=== PATIENT | female | born 1990 | race Caucasian/White ===

== ENCOUNTER 2017-06-13 10:53 | Emergency (ER) | payer MEDICAID ==
[2017-06-13 11:10] VITALS: RESP 16; TEMP 97.9
--- NOTE | 2017-06-13 11:47 | EDPHY ---
H & P Time Seen by Provider: 06/13/17 11:22 HPI/ROS: CHIEF COMPLAINT: left hand pain HISTORY OF PRESENT ILLNESS: 26-year-old female presents emergency department for a recheck of her left 5th phalanx fracture. Patient broke her proximal phalanx playing football 10 days ago, she was seen at urgent care and told she has a spiral fracture of her proximal phalanx. She was placed in a splint and told to follow up with Orthopedics. Patient has Medicaid, she reports she was told she needed to come to the emergency department to get a referral to see Ortho and to get a repeat x-ray. Patient denies numbness or tingling in her hand, splint is in place, she denies increase in pain. Smoking Status: Never smoked Physical Exam: GEN: Awake, alert, oriented, no acute distress RESP: nl resp effort MSK: Left hand with ulnar gutter splint in place, cap refill less pinky less than 3 seconds, sensation intact to light touch SKIN: No break in exposed skin Constitutional: Initial Vital Signs Temperature (C) 36.6 C 06/13/17 11:06 Heart Rate 71 06/13/17 11:06 Respiratory Rate 16 06/13/17 11:06 Blood Pressure 111/49 L 06/13/17 11:06 O2 Sat (%) 99 06/13/17 11:06 O2 Delivery Mode Room Air Allergies/Adverse Reactions: No Known Allergies Allergy (Verified 06/13/17 11:10) Home Medications: Medication Instructions Recorded NK [No Known Home Meds] 06/13/17 MDM/Departure - MDM Imaging: I viewed and interpreted images myself Procedures: A ulnar gutter Ortho Glass splint was applied. After application of the splint , I returned and re-examined the patient. The splint was adequately immobilizing the joint. The patients circulation and sensation were intact distal to the splint. - Depart Disposition: Home, Routine, Self-Care Clinical Impression: Finger fracture, left Qualifiers: Encounter type: initial encounter Finger: little finger Fracture type: closed Phalanx: proximal Fracture alignment: nondisplaced Qualified Code(s): S62.647A - Nondisplaced fracture of proximal phalanx of left little finger, initial encounter for closed fracture Condition: Good Instructions: Finger Fracture (ED) Additional Instructions: Keep splint in place. Follow up with the orthopedist at 1st available appointment. Return to the emergency department for numbness or tingling to your hand, pain that is not controlled, new symptoms or concerns. Referrals: Mariano Gar MD [Medical Doctor] - As per Instructions (Hand orthopedist on- call)
[2017-06-13 13:28] VITALS: BP 104/69; PULSE 65; O2SAT 95
== END 2017-06-13 13:28 | disposition home or self-care (01) ==
DX: S62.647A Nondisplaced fracture of proximal phalanx of left little finger, initial encounter for closed fracture (principal); X58.XXXA Exposure to other specified factors, initial encounter; Y99.8 Other external cause status; Y93.61 Activity, american tackle football

== ENCOUNTER → 2018-02-03 | Outpatient (CLI) | payer MEDICAID | LOC: FIMAGING 07:25 | PROVIDERS: ATTEND Advanced Practice Midwife | DX: O44.22 Partial placenta previa NOS or without hemorrhage, second trimester (principal); Z3A.19 19 weeks gestation of pregnancy ==

== ENCOUNTER → 2018-04-24 | Outpatient (CLI) | payer MEDICAID | LOC: FIMAGING 14:27 | PROVIDERS: ATTEND Advanced Practice Midwife | DX: Z34.03 Encounter for supervision of normal first pregnancy, third trimester (principal); Z3A.30 30 weeks gestation of pregnancy ==

== ENCOUNTER → 2018-07-17 | Outpatient (CLI) | payer MEDICAID | LOC: FLACT 12:50 | PROVIDERS: ATTEND Advanced Practice Midwife | DX: Z39.1 Encounter for care and examination of lactating mother (principal) | CPT/HCPCS: G0463 ==